=== PATIENT | female | born 1955 | race Caucasian/White ===

== ENCOUNTER 2017-04-07 16:45 | Observation (INO) | payer OTHER ==
[~2017-04-07] VITALS: Ht 170.2 cm; Wt 81.6 kg
[~2017-04-07 16:45] MED LIST: AMOXIL500 MG PO; ATORVASTATIN CA10 MG PO; BACTRIM DS 8001 TAB PO; IBUPROFEN600 M1 PO; KEFLEX500 MG PO; LEVETIRACETAM750 MG PO; PERCOCET 325 MG1 TA2 PO; PREDNISONE20 M1 PO; ULTRAM50 M1 PO; VIBRAMYCIN100 MG PO
--- NOTE | 2017-04-07 16:50 | NUR ---
PT STATES SHE IS FEELING SOB AND HAVING DIFFICULTY THINKING SINCE THIS AM WHEN SHE GOT TO WORK. PT DENIES CHEST PAIN OR WEAKNESS IN LIMBS. PT 02 SAT 97% IN TRIAGE
--- NOTE | 2017-04-07 19:08 | ED DYSPNEA/ASTHMA COMPLAINT ---
History of Present Illness General Chief Complaint: Dyspnea (COPD, CHF, Other) Stated Complaint: SOB, X 6 HRS Vital Signs & Intake/Output Vital Signs & Intake/Output Vital Signs Date Time Temp Pulse Resp B/P B/P Pulse O2 O2 Flow FiO2 Mean Ox Delivery Rate 04/07 1651 96.9 77 18 144/76 97 Room Air Allergies Coded Allergies: carbamazepine (RASH 11/20/16) Uncoded Allergies: CHIPOTLE SEASONING (Intermediate, HIVES 02/07/15) Reconcile Medications Amoxicillin (Amoxil) 500 MG CAP 1 CAP PO TID DENTAL ABSCESS Atorvastatin Calcium (Lipitor) 10 MG TABLET 1 TAB PO AT BEDTIME CHOLESTEROL ( Reported) Cephalexin (Keflex) 500 MG CAPSULE 1 TAB PO 4 TIMES/DAY CELLULITIS Cephalexin (Keflex) 500 MG CAPSULE 1 TAB PO TID CELLULITIS Doxycycline Hyclate (Vibramycin) 100 MG CAPSULE 1 CAP PO BID PNEUMONIA Ibuprofen 600 MG TABLET 1 TAB PO Q6PRN PRN pain with food Levetiracetam 750 MG TABLET 1 TAB PO BID SEIZURES (Reported) OXYCODONE HCL/ACETAMINOPHEN (Percocet 5-325 MG Tablet) 325 MG/5 MG TAB 1-2 TAB PO Q4-6 PRN PRN PAIN OXYCODONE HCL/ACETAMINOPHEN (Percocet 5-325 MG Tablet) 325 MG/5 MG TAB 1-2 TAB PO Q4-6 PRN PRN PAIN EIGHT TABS... [id number] Prednisone 20 MG TABLET 1 TAB PO DAILY COPD Sulfamethoxazole/Trimethopri (Bactrim Ds 800 MG-160 MG) 1 TAB TAB 1 TAB PO BID CELLUITIS Tramadol HCl (Ultram) 50 MG TABLET 1-2 TAB PO Q6PRN PRN severe pain Triage Note: PT STATES SHE IS FEELING SOB AND HAVING DIFFICULTY THINKING SINCE THIS AM WHEN SHE GOT TO WORK. PT DENIES CHEST PAIN OR WEAKNESS IN LIMBS. Triage Nurses Notes Reviewed? 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 EENTM: Reports: no symptoms. Respiratory: Reports: no symptoms. Cardiovascular: Reports: no symptoms. GI: Reports: no symptoms. Genitourinary: Reports: no symptoms. Musculoskeletal: Reports: no symptoms. Skin: Reports: no symptoms. Neurological/Psychological: Reports: no symptoms. Hematologic/Endocrine: Reports: no symptoms. Immunologic/Allergic: Reports: no symptoms. All Other Systems: Reviewed and Negative Progress Plan of Care: Orders Procedure Date/time Status CT HEAD WO IV CONTRAST 04/07 1929 Active XRY-PORTABLE CHEST XRAY 04/07 1908 Active TROPONIN LEVEL 04/07 1908 Active D-DIMER 04/07 1908 Active COMPREHENSIVE METABOLIC PANEL 04/07 1908 Active CBC WITHOUT DIFFERENTIAL 04/07 1908 Active EKG 04/07 1652 Active Departure Departure Condition: Stable Referrals: MARKY MARTE MD (PCP/Family) Departure Forms: Customer Survey General Discharge Information
--- NOTE | 2017-04-07 19:26 | NUR ---
DR PAZ AT BEDSIDE FOR EVAL
--- NOTE | 2017-04-07 19:31 | ED GENERAL ADULT ---
History of Present Illness General Chief Complaint: Dyspnea (COPD, CHF, Other) Stated Complaint: SOB, X 6 HRS Source: patient, family Exam Limitations: no limitations Vital Signs & Intake/Output Vital Signs & Intake/Output Vital Signs Date Time Temp Pulse Resp B/P B/P Pulse O2 O2 Flow FiO2 Mean Ox Delivery Rate 04/078 97.3 91 18 147/74 96 Room Air 04/07 2228 Room Air 04/07 1957 96 04/07 1651 96.9 77 18 144/76 97 Room Air Allergies Coded Allergies: carbamazepine (RASH 11/20/16) Uncoded Allergies: CHIPOTLE SEASONING (Intermediate, HIVES 02/07/15) Reconcile Medications Amoxicillin (Amoxil) 500 MG CAP 1 CAP PO TID DENTAL ABSCESS Atorvastatin Calcium (Lipitor) 10 MG TABLET 1 TAB PO AT BEDTIME CHOLESTEROL ( Reported) Cephalexin (Keflex) 500 MG CAPSULE 1 TAB PO 4 TIMES/DAY CELLULITIS Cephalexin (Keflex) 500 MG CAPSULE 1 TAB PO TID CELLULITIS Cyanocobalamin (Vitamin B-12) (B-12) 1,000 MCG TABLET 1 TAB PO DAILY SUPPLEMENT (Reported) Doxycycline Hyclate (Vibramycin) 100 MG CAPSULE 1 CAP PO BID PNEUMONIA Ibuprofen 600 MG TABLET 1 TAB PO Q6PRN PRN pain with food Levetiracetam 750 MG TABLET 1 TAB PO BID SEIZURES (Reported) OXYCODONE HCL/ACETAMINOPHEN (Percocet 5-325 MG Tablet) 325 MG/5 MG TAB 1-2 TAB PO Q4-6 PRN PRN PAIN OXYCODONE HCL/ACETAMINOPHEN (Percocet 5-325 MG Tablet) 325 MG/5 MG TAB 1-2 TAB PO Q4-6 PRN PRN PAIN EIGHT TABS... [id number] Prednisone 20 MG TABLET 1 TAB PO DAILY COPD Sulfamethoxazole/Trimethopri (Bactrim Ds 800 MG-160 MG) 1 TAB TAB 1 TAB PO BID CELLUITIS Tramadol HCl (Ultram) 50 MG TABLET 1-2 TAB PO Q6PRN PRN severe pain Triage Note: PT STATES SHE IS FEELING SOB AND HAVING DIFFICULTY THINKING SINCE THIS AM WHEN SHE GOT TO WORK. PT DENIES CHEST PAIN OR WEAKNESS IN LIMBS. Triage Nurses Notes Reviewed? yes Onset: Gradual Duration: hour(s):, better Timing: single episode today Injury Environment: work Severity: moderate Modifying Factors: Improves With: rest. Associated Symptoms: difficulty with word finding, "not thinking right" HPI: 62 yo woman h/o seizure disorder, well controlled on Keppra, presents with several hours of "difficulty thinking... difficulty concntrating doing time sheets... I had trouble finding the right words to use." Symptoms from 10am to 1:30pm today. She had missed a keppra dose. She took her keppra upon returning from work, "but I've missed my doses before and this never happened." She notes that she had no slurred speech or focal arm weakness or facial droop. She had no chest pain dizziness diaphoresis. She does note that she has a dry cough and occasional mild wheeze for the past 1-2 days without fever. She is otherwise well. Past History Travel History Traveled to [place] past 21 day No Medical History Any Pertinent Medical History? 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 No Review of Systems Review of Systems Constitutional: Reports: no symptoms. EENTM: Reports: no symptoms. Respiratory: Reports: no symptoms. Cardiovascular: Reports: no symptoms. GI: Reports: no symptoms. Genitourinary: Reports: no symptoms. Musculoskeletal: Reports: no symptoms. Skin: Reports: no symptoms. Neurological/Psychological: Reports: no symptoms. Hematologic/Endocrine: Reports: no symptoms. Immunologic/Allergic: Reports: no symptoms. All Other Systems: Reviewed and Negative Physical Exam Physical Exam General Appearance: well developed/nourished, no apparent distress Head: atraumatic, normal appearance Eyes: Bilateral: normal appearance, PERRL, EOMI. Ears, Nose, Throat: normal pharynx, normal ENT inspection Neck: normal inspection, supple, full range of motion Respiratory: normal breath sounds, chest non-tender, no respiratory distress, quiet respiration, lungs clear Cardiovascular: regular rate/rhythm Gastrointestinal: normal bowel sounds, soft, non-tender, no organomegaly Back: normal inspection, normal range of motion Extremities: normal inspection, normal capillary refill, normal range of motion, no edema Neurologic/Psych: no motor/sensory deficits, awake, alert, oriented x 3 Reflexes: 1+: bicep (R), bicep (L), knee (R), knee (L). Skin: intact, normal color, warm/dry Core Measures ACS in differential dx? No ASA ordered for poss ACS? No-ACS ruled out CVA/TIA Diagnosis: Yes NIH Stroke Scale: Total 0 Comment: discussed with dr. vigil... no need for tpa... normal exam. Severe Sepsis Present: No Septic Shock Present: No Progress Differential Diagnoses I considered the following diagnoses in my evaluation of the patient: tia vs sz vs mass vs other. Plan of Care: Orders Procedure Date/time Status Nothing by Mouth 04/08 B Active Intake & Output 04/07 2158 Active Patient Data 04/07 2129 Active Saline Lock 04/07 2119 Active Misc Message 04/07 2119 Active ED Holding Orders 04/07 2119 Active Vital Signs 04/07 2119 Active Code Status 04/[address] in observation 04/07 2118 Active TROPONIN LEVEL 04/07 1908 Complete D-DIMER 04/07 1908 Complete COMPREHENSIVE METABOLIC PANEL 04/07 1908 Complete CBC WITHOUT DIFFERENTIAL 04/07 1908 Complete EKG 04/07 165 Active Laboratory Tests 04/07/17 1940: Anion Gap 10, Estimated GFR > 60, BUN/Creatinine Ratio 21.4, Glucose 96, Calcium 10.0, Total Bilirubin 0.6, AST 21, ALT 24, Alkaline Phosphatase 103, Troponin I < 0.01, Total Protein 7.3, Albumin 4.2, Globulin 3.1, Albumin/Globulin Ratio 1.4 , D-Dimer < 200, CBC w Diff NO MAN DIFF REQ, RBC 4.12 L, MCV 93.0, MCH 31.0, RDW 13.8, MPV 9.1, Gran % 56.9, Lymphocytes % 32.9, Monocytes % 9.0, Eosinophils % 0.8, Basophils % 0.4, Absolute Granulocytes 3.8, Absolute Lymphocytes 2.2, Absolute Monocytes 0.6, Absolute Eosinophils 0.1, Absolute Basophils 0, PUBS MCHC 33.3 Diagnostic Imaging: Viewed by Me: CT Scan. Discussed w/RAD: CT Scan. Radiology Impression: head ct... neg... full report below CXR Impression: no acute abnormality, no infiltrates, normal size heart, normal mediastinum Initial ED EKG: normal axis, normal intervals, normal p-waves, normal QRS complex, normal sinus rhythm Comments: PATIENT: AMBER MULLIGAN PRESENT AGE: 62 PATIENT ACCOUNT NO: [id number] : 55 LOCATION: [facility] ORDERING PHYSICIAN: HUBERT PAZ MD SERVICE DATE: 04/07/17 EXAM TYPE: CAT - CT HEAD WO IV CONTRAST EXAMINATION: CT HEAD WITHOUT CONTRAST CLINICAL INFORMATION: Mental status change COMPARISON: 11/20/2016 TECHNIQUE: Contiguous axial imaging was performed from the skull base to vertex without intravenous contrast. DLP: 541 mGy-cm. FINDINGS: There is no evidence of acute intracranial hemorrhage or territorial infarction. No abnormal mass effect or midline shift is seen. Stinson to white matter differentiation is well preserved. No extra-axial fluid collections are identified. No hydrocephalus. No significant volume loss. There is no abnormal attenuation within the brain parenchyma. The osseous structures and soft tissues are normal. The mastoid air cells and visualized portions of the paranasal sinuses are well aerated. IMPRESSION: No acute intracranial pathology. DICTATED BY: YESSICA STRONG MD DATE/TIME DICTATED:04/07/172005 GLOVE FORMER:RASHID DATE/TIME TRANSCRIBED:04/07/172005 CONFIDENTIAL, DO NOT COPY WITHOUT APPROPRIATE AUTHORIZATION. <Electronically signed in Other Vendor System> SIGNED BY: YESSICA STRONG MD 04/07 PATIENT: AMBER MULLIGAN PRESENT AGE: 62 PATIENT ACCOUNT NO: [id number] : 55 LOCATION: [facility] ORDERING PHYSICIAN: HUBERT PAZ MD SERVICE DATE: 04/07/17 EXAM TYPE: RAD - XRY-PORTABLE CHEST XRAY EXAMINATION: XR PORTABLE CHEST CLINICAL INFORMATION: Shortness of breath COMPARISON: 11/14/2016 TECHNIQUE: Portable frontal view of the chest was obtained. FINDINGS: No focal consolidation, pleural effusion or pneumothorax. Heart size is normal. No acute osseous abnormality. IMPRESSION: No acute pulmonary process. DICTATED BY: ZAIRA MARCH MD DATE/TIME DICTATED:04/07/171930 GLOVE FORMER:RASHID DATE/TIME TRANSCRIBED:04/07/171930 CONFIDENTIAL, DO NOT COPY WITHOUT APPROPRIATE AUTHORIZATION. <Electronically signed in Other Vendor System> SIGNED BY: ZAIRA MARCH MD 04/07/171935 Departure Departure Disposition: HOME OR SELF CARE Condition: Stable Clinical Impression Primary Impression: TIA (transient ischemic attack) Referrals: MARKY MARTE MD (PCP/Family) Departure Forms: Customer Survey General Discharge Information Comments 04/07/17, 20:45... discussed with dr. vigil... pt merits u/s and further workup. Observation Note Spoke With: WIL LALA,REIS Physician Advisor Notified: AIDE ALLAN DO Place Patient In: Non-ED OBS Care Area Rationale for Observation: My rational for observation is as follows . discussed with neuro... pt has sx consistent with tia vs partial seizure... merits observation, neuro consult, carotid u/s, and following symptoms. Critical Care Note Critical Care Note Critical Care Time: non-applicable
--- NOTE | 2017-04-07 19:36 | RADIOLOGY REPORT ---
EXAMINATION: XR PORTABLE CHEST CLINICAL INFORMATION: Shortness of breath COMPARISON: 11/14/2016 TECHNIQUE: Portable frontal view of the chest was obtained. FINDINGS: No focal consolidation, pleural effusion or pneumothorax. Heart size is normal. No acute osseous abnormality. IMPRESSION: No acute pulmonary process.
--- NOTE | 2017-04-07 19:44 | NUR ---
PT TO CT VIA STRETCHER. RESPIRATORY CALLED FOR TX
--- NOTE | 2017-04-07 19:47 | NUR ---
BLOOD DRAWN AND SENT TO LAB. SST,ARELLANO,BLUE,LAV.
[2017-04-07 19:55] LABS: ABSOLUTE BASOPHIL COUNT 0 /CUMM (0.0-0.2); ABSOLUTE EOSINOPHIL COUNT 0.1 /CUMM (0.0-0.7); ABSOLUTE GRANULOCYTE CT 3.8 /CUMM (1.4-6.5); ABSOLUTE LYMPH COUNT 2.2 /CUMM (1.2-3.4); ABSOLUTE MONOCYTE COUNT 0.6 /CUMM (0.10-0.60); BASOPHIL % 0.4 % (0.0-2.0); EOSINOPHIL % 0.8 % (0-5); GRANULOCYTE % 56.9 % (42.2-75.2); HEMATOCRIT 38.3 % (37-47); MEAN CORPUSCULAR HGB CONC 33.3 G/DL (33.0-37.0); MEAN PLATELET VOLUME 9.1 FL (7.4-10.4); PLATELET COUNT 298 /CUMM (130-400); RBC DISTRIBUTION WIDTH 13.8 % (11.5-14.5); RED BLOOD CELL CT 4.12 /CUMM (4.20-5.40); WHITE BLOOD CELL COUNT 6.6 /CUMM (4.8-10.8)
--- NOTE | 2017-04-07 20:10 | CT SCAN REPORT ---
EXAMINATION: CT HEAD WITHOUT CONTRAST CLINICAL INFORMATION: Mental status change COMPARISON: 11/20/2016 TECHNIQUE: Contiguous axial imaging was performed from the skull base to vertex without intravenous contrast. DLP: 541 mGy-cm. FINDINGS: There is no evidence of acute intracranial hemorrhage or territorial infarction. No abnormal mass effect or midline shift is seen. Stinson to white matter differentiation is well preserved. No extra-axial fluid collections are identified. No hydrocephalus. No significant volume loss. There is no abnormal attenuation within the brain parenchyma. The osseous structures and soft tissues are normal. The mastoid air cells and visualized portions of the paranasal sinuses are well aerated. IMPRESSION: No acute intracranial pathology.
--- NOTE | 2017-04-07 22:11 | NUR ---
PT GOING TO ROOM 174-1
[2017-04-07] MEDS ORDERED: B-121000 MC3 PO (22:32)
--- NOTE | 2017-04-07 22:54 | NUR ---
20 G IV ESTABLISHED IN LAC
--- NOTE | 2017-04-07 22:55 | NUR ---
ATTEMPTED TO CALL REPORT. NURSE OFF FLOOR AND WILL CALL BACK
--- NOTE | 2017-04-07 23:07 | History & Physical ---
COMFORT DAMICO 04/07/17 6020: General Information and HPI MD Statement: I have seen and personally examined AMBER MULLIGAN and documented this H&P. The patient is a 62 year old F who presented with a patient stated chief complaint of [slowness and inability to think right]. Source of Information: patient Exam Limitations: no limitations History of Present Illness: This is a 62-year-old female, with past medical history of seizure disorder since childhood (initially absence seizure, and then tonic-clonic seizure since 2011), hyperlipidemia, COPD, emphysema, cholelithiasis came in with chief complain of not able to work and comprehend normally since today morning. 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 She says that she was at work and she was not able to work on her time she eats. It took a lot more effort from her side to do her routine work. At times she lost understanding of what was going on. However she never was not alert or lost consciousness or had any abnormal activities. She said that she had to write ischemia and she could not reply the email coherently. She does report endorse however that she conducted a job interview, she had some mild low-grade headache and noise was bothering her. She continued to work from 10 AM until 1: 30 PM however after that she felt like she could not discontinue normally and therefore came in home. She did try a pack of home normally. He does consume alcohol over the weekend, recently she consumes 6 shots of alcohol over the weekend however she says that she does not drink on daily basis and it's only the weekend when the patient together mostly tequila. Ms kinney was diagnosed with since he isn't in the childhood and she was kept on Depakote, however she was seizure free and therefore was taken off the Depakote, however in 2011 the seizure record with being tonic-clonic this time, after which she was started on Keppra. She says that she has been very compliant with her Keppra and has not missed any dosages. She sees neurologist twice a year her primary care Dr. Cisneros, and she says that she has been mostly compliant. She denied any seizure-like activity, any loss of consciousness, any palpitations, she did however endorse that she had not had her breakfast in the morning and she did not drink any water and she also did not eat properly the previous dAY night.she did sleep well the previous night. Allergies/Medications Allergies: Coded Allergies: carbamazepine (RASH 11/20/16) Uncoded Allergies: CHIPOTLE SEASONING (Intermediate, HIVES 02/07/15) Home Med list Atorvastatin Calcium (Lipitor) 10 MG TABLET 1 TAB PO AT BEDTIME CHOLESTEROL ( Reported) Cyanocobalamin (Vitamin B-12) (B-12) 1,000 MCG TABLET 1 TAB PO DAILY SUPPLEMENT (Reported) Ibuprofen 600 MG TABLET 600 MG PO Q8P PRN Knee pain Levetiracetam 750 MG TABLET 1 TAB PO BID SEIZURES (Reported) Compliance With Home Meds: FAIR Past History Travel History Traveled to [place] past 21 day No Medical History Blood Transfusion Hx: No Neurological: seizure, EPILEPSY EENT: NONE Cardiovascular: hyperlipidemia Respiratory: COPD, emphysema, pneumonia Gastrointestinal: NONE Hepatic: cholelithiasis Renal: NONE Musculoskeletal: NONE Psychiatric: NONE Endocrine: NONE Blood Disorders: NONE Cancer(s): NONE ON AIR PERSONALITY/Reproductive: NONE Surgical History Surgical History: non-contributory Past Family/Social History Psychosocial History Where do you live? Home Who Do You Live With? significant other Services at Home: None Smoking Status: Former Smoker ETOH Use: occasional use Illicit Drug Use: marijuana Functional Ability ADLs Independent: dressing, eating, toileting, bathing. Ambulation: independent IADLs Independent: shopping, housework, finances, food prep, telephone, transportation , medication admin. Review of Systems Review of Systems Constitutional: Denies: chills, diaphoresis, fever, malaise, weakness, unexplained weight loss. EENTM: Denies: blurred vision, double vision, visual changes, eye pain, eye drainage. Cardiovascular: Denies: chest pain, edema, orthopena, palpitations, peripheral edema. Respiratory: Denies: cough, hemoptysis, orthopnea, short of breath, sputum production. GI: Denies: abdominal pain, bloating, constipation, diarrhea. Genitourinary: Denies: discharge, dysuria, frequency, hematuria. Musculoskeletal: Denies: back pain, gout, joint pain, joint swelling. Skin: Denies: cysts, change in skin color, change in hair/nails, dryness. Neurological/Psychological: Reports: confusion, headache. Denies: anxiety, ataxia, cognitive dysfunction, depressed, dementia, emotional problems, numbness, paresthesia. Hematologic/Endocrine: Reports: no symptoms. Immunologic/Allergic: Reports: no symptoms. All Other Systems: Reviewed and Negative Exam & Diagnostic Data Last 24 Hrs of Vital Signs/I&O Vital Signs Date Time Temp Pulse Resp B/P B/P Pulse O2 O2 Flow FiO2 Mean Ox Delivery Rate 04/08 0000 Room Air 04/07 2258 97.3 91 18 147/74 96 Room Air 04/07 2228 Room Air 04/07 1957 96 04/07 1651 96.9 77 18 144/76 97 Room Air Intake & Output 04/08 0800 04/08 0000 04/07 1600 Intake Total Output Total Balance Patient 81.647 kg Weight Weight Reported by Patient Measurement Method Physical Exam General Appearance Alert, Oriented X3, Cooperative, No Acute Distress Skin No Rashes, No Breakdown HEENT Atraumatic, PERRLA, EOMI Neck Supple, No JVD Cardiovascular Regular Rate, Normal S1, Normal S2 Lungs Clear to Auscultation, Normal Air Movement Abdomen Normal Bowel Sounds, Soft, No Tenderness Neurological Normal Speech, Strength at 5/5 X4 Ext, Normal Tone, Sensation Intact, Cranial Nerves 3-12 NL Extremities No Clubbing, No Cyanosis, No Edema, Normal Pulses Vascular Normal Pulses Last 24 Hrs of Labs/Aaron: Laboratory Tests 04/08/17 0125: Urine Opiates Screen < 100.00, Methadone Screen < 40, Barbiturate Screen < 60, Ur Phencyclidine Scrn < 6.00, Amphetamines Screen < 100, U Benzodiazepines Scrn < 85, Urine Cocaine Screen < 50, Urine Cannabis Screen 75.40 H, Urine Color YEL , Urine Clarity CLEAR, Urine pH 6.0, Ur Specific [place] 1.025, Urine Protein NEG, Urine Ketones NEG, Urine Nitrite NEG, Urine Bilirubin NEG, Urine Urobilinogen 0.2, Ur Leukocyte Esterase NEG, Ur Microscopic EXAM NOT REQUIRED, Urine Hemoglobin NEG, Urine Glucose NEG 04/07/17 1940: Anion Gap 10, Estimated GFR > 60, BUN/Creatinine Ratio 21.4, Glucose 96, Calcium 10.0, Total Bilirubin 0.6, AST 21, ALT 24, Alkaline Phosphatase 103, Troponin I < 0.01, Total Protein 7.3, Albumin 4.2, Globulin 3.1, Albumin/Globulin Ratio 1.4 , D-Dimer < 200, CBC w Diff NO MAN DIFF REQ, RBC 4.12 L, MCV 93.0, MCH 31.0, RDW 13.8, MPV 9.1, Gran % 56.9, Lymphocytes % 32.9, Monocytes % 9.0, Eosinophils % 0.8, Basophils % 0.4, Absolute Granulocytes 3.8, Absolute Lymphocytes 2.2, Absolute Monocytes 0.6, Absolute Eosinophils 0.1, Absolute Basophils 0, PUBS MCHC 33.3 Diagnostic Data EKG Results normal sinus rhythm, rate of 75, QTC of 442, no acute ST-T wave changes, normal axis. CXR Results FINDINGS: No focal consolidation, pleural effusion or pneumothorax. Heart size is normal. No acute osseous abnormality. IMPRESSION: No acute pulmonary process. Other Results SERVICE DATE: 04/07/17 EXAM TYPE: CAT - CT HEAD WO IV CONTRAST EXAMINATION: CT HEAD WITHOUT CONTRAST CLINICAL INFORMATION: Mental status change COMPARISON: 11/20/2016 TECHNIQUE: Contiguous axial imaging was performed from the skull base to vertex without intravenous contrast. DLP: 541 mGy-cm. FINDINGS: There is no evidence of acute intracranial hemorrhage or territorial infarction. No abnormal mass effect or midline shift is seen. [place]inson to white matter differentiation is well preserved. No extra-axial fluid collections are identified. No hydrocephalus. No significant volume loss. There is no abnormal attenuation within the brain parenchyma. The osseous structures and soft tissues are normal. The mastoid air cells and visualized portions of the paranasal sinuses are well aerated. IMPRESSION: No acute intracranial pathology. Assessment/Plan Assessment: In summary this is a 62-year-old female with past medical history of absence seizures since childhood, initially on Depakote, in remission, recurrence of the seizure now tonic-clonic since 2011 on Keppra, hyperlipidemia, COPD, emphysema, cholelithiasis came in with chief complain of difficulty comprehending normally and reactive slowness off work and not being able to understand and have complete coherence at work today morning prior to presentation. She denied any seizure-like activities, any loss of consciousness, palpitations, weakness, chest pain, any recent illness. Vitals on presentation temperature of 97.3/blood pressure of 147/74, respiration of 19, pulse of 91, she was 96% saturating on room air. Effects no white count, A/H stable at 12.8/38.3, electrolytes within normal limits, renal function test normal, LFTs normal, calcium 10.1, troponin less than 0.01. Head CT was negative for any acute intracranial findings. Chest x-ray was negative for any cardiopulmonary findings. We will observe the patient for 24 hours on telemetry Problem list along with assessment and plan. Problem #1 Incoherence, confusion, slowness and inability to think right. She has history of temporal lobe epilepsy my has a history of seizure disorder, there was no bowel or bladder incontinence, any seizure-like activity, no tongue biting, chest confusion, it could be secondary to seizure versus hypoglycemia as the patient had not eaten in the morning, other possibility could be TIA, however patient did not have any neurological focal weakness or sensory loss or any other neurological finding. Other possibility would be withdrawal from Martin basis the patient has been taking a lot of cannabis however she has been taking this for a long time.Other possibilty could be arrythmias, less likely. Continue to monitor vitals every shift. Continue to monitor intakes and outputs. Continue neuro checks. Continue NIH stroke scale. Ct head -ve Neuro consult in a.m. to rule out seizure/TIA. EEG in a.m. Continue Keppra IV twice a day for now. Can check Keppra level however this is a send out lab. she received one time off to 25 mg aspirin at the emergency department. Problem #2 history of hyperlipidemia. Patient was prescribed statin however she was not taking it due to insurance issues. Will continue atorvastatin 10 mg at bedtime. Consider changing to high-dose statin. Fc DVt px lovenox Regular diet PP As Ranked By This Provider Problem List: 1. Confusion 2. Confusion state Core Measures/Miscellaneous Acute Coronary Syndrome ACS Diagnosis: No Cerebrovascular Accident CVA/TIA Diagnosis: No Congestive Heart Failure CHF Diagnosis: No Venous Thromboembolism VTE Risk Factors: Age > 40 [address] [facility] VTE prophylaxis d/t: No contraindications No VTE Pharm Prophylaxis d/t: No contraindications VTE Diagnosis: No VTE Type: NONE VTE Confirmed by (Test): NONE Severe Sepsis Severe Sepsis Present: No Septic Shock Septic Shock Present: No Miscellaneous Documentation Attending Case Discussed With: MARKY CISNEROS MD Primary Care Physician: MARKY CISNEROS MD Patient sees these Specialists Dr pinto ( nuerologist) Level of Patient Care: Telemetry MARKY CISNEROS MD 04/08/17 0926: Attending MD Review Statement Attending Statement Attending MD Statement: examined this patient, discuss w/resident/PA/RN TRAINING, discussed with family, reviewed EMR data (avail) Patient sees these Specialists Dr pinto ( nuerologist) Level of Patient Care: Telemetry MARKY CISNEROS MD 04/08/17 0926: Attending MD Review Statement Attending Statement Attending Statement: examined this patient, discuss w/resident/PA/RN TRAINING, discussed with family, reviewed EMR data (avail)
--- NOTE | 2017-04-07 23:10 | NUR ---
REPORT CALLED TO ELIUD GARCES
--- NOTE | 2017-04-07 23:57 | NUR ---
ASA 325 MG PO GIVEN
--- NOTE | 2017-04-07 23:58 | NUR ---
AMBER MULLIGAN Nurse Note by: DUKE DOBBS I agree with the LAB AIDE findings/evaluation of this patient's condition. Entered by: DUKE DOBBS Date: 04/07/17 Time: 0148
--- NOTE | 2017-04-08 07:45 | PN- Housestaff ---
Subjective Follow-up For: Possible seizure Tele-Events Since Last Visit: NSR Subjective: Patient seen and examined at bedside. Resting comfortably in bed. Alert, awake and oriented x 3. Reports no further episodes of altered mental status since the admission. Feeling well at baseline. Just endorsing right knee pain for which she takes ibuprofen at home. Denies any dyspnea, chest pain, palpitations, lightheadedness, dizziness, abdominal pain, n/v/c/d. Review of Systems Constitutional: Reports: see HPI. Objective Last 24 Hrs of Vital Signs/I&O Vital Signs Date Time Temp Pulse Resp B/P B/P Pulse O2 O2 Flow FiO2 Mean Ox Delivery Rate 04/08 0000 Room Air 04/07 2258 97.3 91 18 147/74 96 Room Air 04/07 2228 Room Air 04/07 195 96 04/07 1651 96.9 77 18 144/76 97 Room Air Intake & Output 04/08 1600 04/08 0800 04/08 0000 Intake Total 250 Output Total Balance 250 Intake, IV 10 Intake, Oral 240 Patient 81.647 kg Weight Weight Reported by Patient Measurement Method Physical Exam General Appearance: Alert, Oriented X3, Cooperative, No Acute Distress Current Medications: Current Medications Sig/Miller Start time Last Medication Dose Route Stop Time Status Admin Albuterol Sulfate 3 ML ONCE ONE 04/07 1945 DC 04/07 INH 04/07 Aspirin 0 .STK-MED ONE 04/078 DC PO Aspirin 325 MG ONCE ONE 04/07 2345 DC 04/07 PO 04/07 Atorvastatin Calcium 10 MG AT BEDTIME 04/08 2200 AC PO Cyanocobalamin 1,000 MCG DAILY 04/08 1000 AC PO Ibuprofen 600 MG Q6PRN PRN 04/08 0815 AC PO Ipratropium [place] 2.5 ML ONCE ONE 04/07 1945 DC 04/07 INH 04/07 Levetiracetam 750 MG BID 04/08 0100 AC 04/08 PO 0137 Last 24 Hrs of Lab/Aaron Results Last 24 Hrs of Labs/Mics: Laboratory Tests 04/08/17 0125: Urine Opiates Screen < 100.00, Methadone Screen < 40, Barbiturate Screen < 60, Ur Phencyclidine Scrn < 6.00, Amphetamines Screen < 100, U Benzodiazepines Scrn < 85, Urine Cocaine Screen < 50, Urine Cannabis Screen 75.40 H, Urine Color YEL , Urine Clarity CLEAR, Urine pH 6.0, Ur Specific [place] 1.025, Urine Protein NEG, Urine Ketones NEG, Urine Nitrite NEG, Urine Bilirubin NEG, Urine Urobilinogen 0.2, Ur Leukocyte Esterase NEG, Ur Microscopic EXAM NOT REQUIRED, Urine Hemoglobin NEG, Urine Glucose NEG 04/07/17 1940: Anion Gap 10, Estimated GFR > 60, BUN/Creatinine Ratio 21.4, Glucose 96, Calcium 10.0, Total Bilirubin 0.6, AST 21, ALT 24, Alkaline Phosphatase 103, Troponin I < 0.01, Total Protein 7.3, Albumin 4.2, Globulin 3.1, Albumin/Globulin Ratio 1.4 , Prolactin Pending, D-Dimer < 200, CBC w Diff NO MAN DIFF REQ, RBC 4.12 L, MCV 93.0, MCH 31.0, RDW 13.8, MPV 9.1, Gran % 56.9, Lymphocytes % 32.9, Monocytes % 9.0, Eosinophils % 0.8, Basophils % 0.4, Absolute Granulocytes 3.8, Absolute Lymphocytes 2.2, Absolute Monocytes 0.6, Absolute Eosinophils 0.1, Absolute Basophils 0, PUBS MCHC 33.3 Assessment/Plan Assessment: 62-year-old female with past medical history of absence seizures since childhood , initially on Depakote, in remission, recurrence of the seizure now tonic- clonic since 2011 on Keppra, hyperlipidemia, COPD, emphysema, cholelithiasis came in with chief complain of difficulty with altered mental status possibly 2/ 2 recurrent seizure activity. # Altered mental status Rule out seizure vs. TIA. CT head negative. * Continue tele monitoring for arrythymias * Vitals per protocol * Continue neuro checks and NIH stroke scale. * Awaiting neuro input * EEG amd MRI of the head in the meantime * Continue Keppra IV 670mg BID for now. * Can check Keppra level (a send out lab) # HLD Patient was prescribed statin however she was not taking it due to insurance issues. * Continue Lipitor 10mg PO qHS * Consider changing to high-dose statin. - NPO - Mild pain pathway - DVTppx with Lovenox and ALPS - Full code. Problem List: 1. Confusion Pain Ratin Pain Location: 0 Pain Goal: Remain pain free Pain Plan: Mild path Tomorrow's Labs & Rationales: None
[2017-04-08 08:13] VITALS: BP 118/76
--- NOTE | 2017-04-08 09:23 | Admission Certification ---
Admission Certification Certification Statement - As attending physician, I certify that at the time of - admission, based on clinical presentation, severity of - symptoms, need for further diagnostic testing and - therapeutic interventions, and risk of adverse outcomes - without in-hospital treatment, in my clinical assessment, - this patient requires an acute hospital stay for a minimum - of two nights or longer. I have also considered psychsocial - factors such as support system, advanced age, financial - issues, cognitive issues, and failed out-patient treatments, - past re-admission history, safety of patient, and lack of - compliance as applicable. Specific rationale supporting this admission is: confusion and AMS
--- NOTE | 2017-04-08 09:27 | PN- Att Addend ---
Attending Addendum Attending Brief Note Patient has no symptoms this morning and she is neurologically intact General Appearance: Alert, No Acute Distress Skin: Grossly normal HEENT: PEERLA Neck: Supple, No JVD Cardiovascular: Regular Rate, Normal S1, Normal S2, No Murmurs Lungs: Clear to Auscultation, Normal Air Movement Abdomen: Normal Bowel Sounds, Soft, No Tenderness Neurological: Normal Speech, Strength at 5/5 X4 Ext, Cranial Nerves 3-12 NL, Reflexes 2+ Extremities: No Clubbing, No Cyanosis, No Edema Vascular: Normal Pulses Assessment 62-year-old female with history of seizure disorder on Keppra, hyperlipidemia, COPD, emphysema presenting with episodes of light lightheadedness and inability to concentrate that lasted for about 4 hours. Patient had not eaten that morning and she has history of hypoglycemia secondary to skipping meals in the past. She has no neurological deficits and her CAT scan head are negative. Suspicion for TIA and seizure disorder is very low. This might be an event of hypoglycemia. She will get a neurological evaluation and have an MRI. Plan MRI brain Neurological evaluation Continue to monitor in telemetry Continue current medications DVT prophylaxis Current Medications Sig/Miller Start time Last Medication Dose Route Stop Time Status Admin Albuterol Sulfate 3 ML ONCE ONE 04/07 1945 DC 04/07 INH 04/07 Aspirin 0 .STK-MED ONE 04/078 DC PO Aspirin 325 MG ONCE ONE 04/07 234 DC 04/07 PO 04/07 2346 235 Atorvastatin Calcium 10 MG AT BEDTIME 04/08 2200 AC PO Cyanocobalamin 1,000 MCG DAILY 04/08 1000 AC 04/08 PO 0910 Ibuprofen 600 MG Q6PRN PRN 04/08 0815 04/08 PO 0910 Ipratropium [place] 2.5 ML ONCE ONE 04/07 1945 DC 04/07 INH 04/07 Levetiracetam 750 MG BID 04/08 0100 AC 04/08 PO 0910 Laboratory Tests 04/08 Chemistry Sodium (137 - 145 mmol/L) 140 Potassium (3.5 - 5.1 mmol/L) 4.1 Chloride (98 - 107 mmol/L) 102 Carbon Dioxide (22 - 30 mmol/L) 27 Anion Gap (5 - 16) 10 BUN (7 - 17 mg/dL) 15 Creatinine (0.5 - 1.0 mg/dL) 0.7 Estimated GFR (>60 ml/min) > 60 BUN/Creatinine Ratio (7 - 25 %) 21.4 Glucose (65 - 99 mg/dL) 96 Calcium (8.4 - 10.2 mg/dL) 10.0 Total Bilirubin (0.2 - 1.3 mg/dL) 0.6 AST (14 - 36 U/L) 21 ALT (9 - 52 U/L) 24 Alkaline Phosphatase (<127 U/L) 103 Troponin I (< 0.11 ng/ml) < 0.01 Total Protein (6.3 - 8.2 g/dL) 7.3 Albumin (3.5 - 5.0 g/dL) 4.2 Globulin (1.9 - 4.2 gm/dL) 3.1 Albumin/Globulin Ratio (1.1 - 2.2 %) 1.4 Prolactin (3.0 - 18.6 ng/mL) Pending Coagulation D-Dimer (70 - 232 ng/ml) < 200 Hematology CBC w Diff NO MAN DIFF REQ WBC (4.8 - 10.8 /CUMM) 6.6 RBC (4.20 - 5.40 /CUMM) 4.12 L Hgb (12.0 - 16.0 G/DL) 12.8 Hct (37 - 47 %) 38.3 MCV (81.0 - 99.0 FL) 93.0 MCH (27.0 - 31.0 PG) 31.0 RDW (11.5 - 14.5 %) 13.8 Plt Count (130 - 400 /CUMM) 298 MPV (7.4 - 10.4 FL) 9.1 Gran % (42.2 - 75.2 %) 56.9 Lymphocytes % (20.5 - 51.1 %) 32.9 Monocytes % (1.7 - 9.3 %) 9.0 Eosinophils % (0 - 5 %) 0.8 Basophils % (0.0 - 2.0 %) 0.4 Absolute Granulocytes (1.4 - 6.5 /CUMM) 3.8 Absolute Lymphocytes (1.2 - 3.4 /CUMM) 2.2 Absolute Monocytes (0.10 - 0.60 /CUMM) 0.6 Absolute Eosinophils (0.0 - 0.7 /CUMM) 0.1 Absolute Basophils (0.0 - 0.2 /CUMM) 0 PUBS MCHC (33.0 - 37.0 G/DL) 33.3 Toxicology Urine Opiates Screen (>2000 NG/ML) < 100.00 Methadone Screen (>300 NG/ML) < 40 Barbiturate Screen (>200 NG/ML) < 60 Ur Phencyclidine Scrn (>25 NG/ML) < 6.00 Amphetamines Screen (>1000 NG/ML) < 100 U Benzodiazepines Scrn (>200 NG/ML) < 85 Urine Cocaine Screen (>300 NG/ML) < 50 Urine Cannabis Screen (>50 NG/ML) 75.40 H Urines Urine Color (YEL,AMB,STR) YEL Urine Clarity (CLEAR) CLEAR Urine pH (5.0 - 8.0) 6.0 Ur Specific [place] (1.001 - 1.035) 1.025 Urine Protein (NEG,<30 MG/DL) NEG Urine Ketones (NEG) NEG Urine Nitrite (NEG) NEG Urine Bilirubin (NEG) NEG Urine Urobilinogen (0.1 - 1.0 EU/dl) 0.2 Ur Leukocyte Esterase (NEG) NEG Ur Microscopic EXAM NOT REQUIRED Urine Hemoglobin (NEG) NEG Urine Glucose (N MG/DL) NEG Vital Signs Date Time Temp Pulse Resp B/P B/P Pulse O2 O2 Flow FiO2 Mean Ox Delivery Rate 04/08 813 98.2 109 18 118/76 92 Room Air 04/08 0000 Room Air 04/078 97.3 91 18 147/74 96 Room Air 04/078 Room Air 04/07 1957 96 04/07 1651 96.9 77 18 144/76 97 Room Air
--- NOTE | 2017-04-08 16:20 | ELECTROENCEPHALOGRAM REPORT ---
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 Inpatient Medications: Current Medications Sig/Miller Start time Last Medication Dose Route Stop Time Status Admin Albuterol Sulfate 3 ML ONCE ONE 04/07 1945 DC 04/07 INH 04/07 Aspirin 0 .STK-MED ONE 04/07 235 DC PO Aspirin 325 MG ONCE ONE 04/07 2345 DC 04/07 PO 04/07 Atorvastatin Calcium 10 MG AT BEDTIME 04/08 2200 AC PO Cyanocobalamin 1,000 MCG DAILY 04/08 1000 AC 04/08 PO 0910 Ibuprofen 600 MG Q6PRN PRN 04/08 0815 AC 04/08 PO 0910 Ipratropium [place] 2.5 ML ONCE ONE 04/07 1945 DC 04/07 INH 04/07 Levetiracetam 750 MG BID 04/08 0100 AC 04/08 PO 0910 Patient Medication 1 ED .STK-MED ONE 04/08 1343 DC Teaching ED 04/08 1344 Interpretation: The recording reveals the normal frequency gradient, faster frequencies anteriorly and slower in the posterior regions. During the recording there are numerous reoccurring short runs of 2-3 hertz sharp and wave forms that occur synchronuously within the bilateral frontal regions. At other times more isolated discharges are seen predominantly within the right frontal region but also at times on the left. The posterior dominant rhythm is 12 hertz bilaterally. Impression: Abnormal EEG that reveals ongoing intermittent short-lived runs of bifrontal spike and wave activity and occasional epileptogenic sharps more prominent within the right frontal region that are consistent with the patient's history of PGE.
[2017-04-08 16:40] VITALS: BP 104/70
--- NOTE | 2017-04-08 18:15 | Cons- Neurology ---
General Information and HPI Consulting Request Date of Consult: 04/08/17 Requested By: MARKY MARTE MD Reason for Consult: AMS Source of Information: patient, old records Exam Limitations: no limitations History of Present Illness: This is a 62 year old right handed woman who is well known for me. I had diagnosed her with recurrence of primary generalized epilepsy in 2011 (had it in childhood but than went off meds for years) and at the time placed her on Keppra. Despite ongoing residual epileptogenic activity on EEGs, she did not have a recurrence. She has been seizure free for 5 years. She is seeing Dr. Cavanaugh at the moment due to a problem she had at our office with her insurance. Yesterday she was at work, when she felt not herself and had a "foggy" mentation and a headache for an unclear reason. Her mentation was slower and she struggled reading and responding to an email, but at the same time could conduct a work interview. Throughout this time she could comprehend and respond to what people were saying and did not pass out at any point. This went on four about four hours after which she reports she had some candy and felt better. She is currently back to baseline. She reminds me that this is not like her seizures in the past were the seizure cut her mid-sentence causing transient aphasic episodes. She is adherent to her regimen, does not drink, but has not slept well over the last couple of days. She denies any fever or chills. Allergies/Medications Allergies: Coded Allergies: carbamazepine (RASH 11/20/16) Uncoded Allergies: CHIPOTLE SEASONING (Intermediate, HIVES 02/07/15) Home Med List: Atorvastatin Calcium (Lipitor) 10 MG TABLET 1 TAB PO AT BEDTIME CHOLESTEROL ( Reported) Cephalexin (Keflex) 500 MG CAPSULE 1 TAB PO TID CELLULITIS Cyanocobalamin (Vitamin B-12) (B-12) 1,000 MCG TABLET 1 TAB PO DAILY SUPPLEMENT (Reported) Doxycycline Hyclate (Vibramycin) 100 MG CAPSULE 1 CAP PO BID PNEUMONIA Ibuprofen 600 MG TABLET 1 TAB PO Q6PRN PRN pain with food Levetiracetam 750 MG TABLET 1 TAB PO BID SEIZURES (Reported) OXYCODONE HCL/ACETAMINOPHEN (Percocet 5-325 MG Tablet) 325 MG/5 MG TAB 1-2 TAB PO Q4-6 PRN PRN PAIN OXYCODONE HCL/ACETAMINOPHEN (Percocet 5-325 MG Tablet) 325 MG/5 MG TAB 1-2 TAB PO Q4-6 PRN PRN PAIN EIGHT TABS... [id number] Prednisone 20 MG TABLET 1 TAB PO DAILY COPD Sulfamethoxazole/Trimethopri (Bactrim Ds 800 MG-160 MG) 1 TAB TAB 1 TAB PO BID CELLUITIS Tramadol HCl (Ultram) 50 MG TABLET 1-2 TAB PO Q6PRN PRN severe pain Current Medications: Current Medications Sig/Miller Start time Last Medication Dose Route Stop Time Status Admin Albuterol Sulfate 3 ML ONCE ONE 04/07 1945 DC 04/07 INH 04/07 Aspirin 0 .STK-MED ONE 04/07 235 DC PO Aspirin 325 MG ONCE ONE 04/07 234 DC 04/07 PO 04/07 2346 235 Atorvastatin Calcium 10 MG AT BEDTIME 04/08 2200 AC PO Cyanocobalamin 1,000 MCG DAILY 04/08 1000 AC 04/08 PO 0910 Ibuprofen 600 MG Q6PRN PRN 04/08 0815 AC 04/08 PO 0910 Ipratropium [place] 2.5 ML ONCE ONE 04/07 1945 DC 04/07 INH 04/07 Levetiracetam 750 MG BID 04/08 0100 AC 04/08 PO 0910 Patient Medication 1 ED .STK-MED ONE 04/08 1343 [place] Teaching ED 04/08 1344 Review of Systems Review of Systems: As per HPI. 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 Home Who Do You Live With? significant other Services at Home: None Smoking Status: Former Smoker ETOH Use: occasional use Illicit Drug Use: marijuana Functional Ability ADLs Independent: dressing, eating, toileting, bathing. Ambulation: independent IADLs Independent: shopping, housework, finances, food prep, telephone, transportation , medication admin. Exam & Diagnostic Data Vital Signs and I&O Vital Signs Date Time Temp Pulse Resp B/P B/P Pulse O2 O2 Flow FiO2 Mean Ox Delivery Rate 04/08 1640 98.5 87 18 104/70 95 Room Air 04/08 0813 98.2 109 18 118/76 92 Room Air 04/08 0000 Room Air 04/07 2258 97.3 91 18 147/74 96 Room Air 04/07 2228 Room Air 04/07 1957 96 Intake & Output 04/08 1600 04/08 0800 04/08 0000 Intake Total 500 250 Output Total Balance 500 250 Intake, IV 10 Intake, Oral 500 240 Number 0 Bowel Movements Patient 180 lb Weight Weight Reported by Patient Measurement Method Physical Exam: She is alert and orientedx3, fluent and comprehends everything. S1 and S2 are normal. RRR. EOMI, ASHLEY, no nystagmus, face symmetric, V1-V3 sensation normal, tongue midline , uvula raises in shiva midline, hearing is normal. TPZ and SCM strong. Strength intact throughout the proximal and distal distributions of the UE and LE. Sensory testing is normal. FNF normal. Reflexes symmetric with down going toes. Gait stable. VF intact. Last 48 Hours of Lab Results: Laboratory Tests 04/08 04/07 0125 1940 Chemistry Sodium (137 - 145 mmol/L) 140 Potassium (3.5 - 5.1 mmol/L) 4.1 Chloride (98 - 107 mmol/L) 102 Carbon Dioxide (22 - 30 mmol/L) 27 Anion Gap (5 - 16) 10 BUN (7 - 17 mg/dL) 15 Creatinine (0.5 - 1.0 mg/dL) 0.7 Estimated GFR (>60 ml/min) > 60 BUN/Creatinine Ratio (7 - 25 %) 21.4 Glucose (65 - 99 mg/dL) 96 Calcium (8.4 - 10.2 mg/dL) 10.0 Total Bilirubin (0.2 - 1.3 mg/dL) 0.6 AST (14 - 36 U/L) 21 ALT (9 - 52 U/L) 24 Alkaline Phosphatase (<127 U/L) 103 Troponin I (< 0.11 ng/ml) < 0.01 Total Protein (6.3 - 8.2 g/dL) 7.3 Albumin (3.5 - 5.0 g/dL) 4.2 Globulin (1.9 - 4.2 gm/dL) 3.1 Albumin/Globulin Ratio (1.1 - 2.2 %) 1.4 Prolactin (3.0 - 18.6 ng/mL) 5.5 Coagulation D-Dimer (70 - 232 ng/ml) < 200 Hematology CBC w Diff NO MAN DIFF REQ WBC (4.8 - 10.8 /CUMM) 6.6 RBC (4.20 - 5.40 /CUMM) 4.12 L Hgb (12.0 - 16.0 G/DL) 12.8 Hct (37 - 47 %) 38.3 MCV (81.0 - 99.0 FL) 93.0 MCH (27.0 - 31.0 PG) 31.0 RDW (11.5 - 14.5 %) 13.8 Plt Count (130 - 400 /CUMM) 298 MPV (7.4 - 10.4 FL) 9.1 Gran % (42.2 - 75.2 %) 56.9 Lymphocytes % (20.5 - 51.1 %) 32.9 Monocytes % (1.7 - 9.3 %) 9.0 Eosinophils % (0 - 5 %) 0.8 Basophils % (0.0 - 2.0 %) 0.4 Absolute Granulocytes (1.4 - 6.5 /CUMM) 3.8 Absolute Lymphocytes (1.2 - 3.4 /CUMM) 2.2 Absolute Monocytes (0.10 - 0.60 /CUMM) 0.6 Absolute Eosinophils (0.0 - 0.7 /CUMM) 0.1 Absolute Basophils (0.0 - 0.2 /CUMM) 0 PUBS MCHC (33.0 - 37.0 G/DL) 33.3 Toxicology Urine Opiates Screen (>2000 NG/ML) < 100.00 Methadone Screen (>300 NG/ML) < 40 Barbiturate Screen (>200 NG/ML) < 60 Ur Phencyclidine Scrn (>25 NG/ML) < 6.00 Amphetamines Screen (>1000 NG/ML) < 100 U Benzodiazepines Scrn (>200 NG/ML) < 85 Urine Cocaine Screen (>300 NG/ML) < 50 Urine Cannabis Screen (>50 NG/ML) 75.40 H Urines Urine Color (YEL,AMB,STR) YEL Urine Clarity (CLEAR) CLEAR Urine pH (5.0 - 8.0) 6.0 Ur Specific [place] (1.001 - 1.035) 1.025 Urine Protein (NEG,<30 MG/DL) NEG Urine Ketones (NEG) NEG Urine Nitrite (NEG) NEG Urine Bilirubin (NEG) NEG Urine Urobilinogen (0.1 - 1.0 EU/dl) 0.2 Ur Leukocyte Esterase (NEG) NEG Ur Microscopic EXAM NOT REQUIRED Urine Hemoglobin (NEG) NEG Urine Glucose (N MG/DL) NEG Imaging/Other Studies: EEG = short runs of 3Hz spike and wave bifrontally. Assessment/Plan Assessment: 62 year old woman who has been seizure free x 5 years despite having an abnormal EEG throughout it. Clinically, her current episode is not clear cut a seizure and she continues to have runs of epileptogenic activity despite being back to baseline. At this point I would recommend staying at the current dose of Keppra. Recommendations: 1. Recommend c/w current dose of Keppra [address] until repeating EEG as outpt with current neurologist. 3. Otherwise could be discharged. I will also compare her current EEGs to the old EEGs in our office. Consult Acknowledgment - Thank you for your consult request.
[2017-04-09 00:07] VITALS: BP 110/66
--- NOTE | 2017-04-09 05:45 | PN- Housestaff ---
Subjective Follow-up For: Weakness Tele-Events Since Last Visit: NSR Subjective: Patient seen and examined at bedside. Resting comfortably in bed with no complaints. Alert, awake and oriented x 3. Feeling well at baseline. Denies any dyspnea, chest pain, palpitations, lightheadedness, dizziness, abdominal pain, n /v/c/d. Review of Systems Constitutional: Reports: see HPI. Objective Last 24 Hrs of Vital Signs/I&O Vital Signs Date Time Temp Pulse Resp B/P B/P Pulse O2 O2 Flow FiO2 Mean Ox Delivery Rate 04/09 0800 98.0 79 20 118/60 95 Room Air 04/09 0007 98.1 90 20 110/66 95 Room Air 04/09 0000 97 Room Air 04/08 1640 98.5 87 18 104/70 95 Room Air Intake & Output 04/09 1600 04/09 0800 04/09 0000 Intake Total 480 300 Output Total Balance 480 300 Intake, Oral 480 300 Physical Exam General Appearance: Alert, Oriented X3, Cooperative, No Acute Distress Other Physical Findings: Skin No Rashes, No Breakdown HEENT Atraumatic, PERRLA, EOMI Neck Supple, No JVD Cardiovascular Regular Rate, Normal S1, Normal S2 Lungs Clear to Auscultation, Normal Air Movement Abdomen Normal Bowel Sounds, Soft, No Tenderness Neurological Normal Speech, Strength at 5/5 X4 Ext, Normal Tone, Sensation Intact, Cranial Nerves 3-12 NL Extremities No Clubbing, No Cyanosis, No Edema, Normal Pulses Vascular Normal Pulses Current Medications: Current Medications Sig/Miller Start time Last Medication Dose Route Stop Time Status Admin Atorvastatin Calcium 10 MG AT BEDTIME 04/08 2200 AC PO Cyanocobalamin 1,000 MCG DAILY 04/08 1000 AC 04/09 PO 0917 Ibuprofen 600 MG Q6PRN PRN 04/08 0815 04/09 PO 0918 Levetiracetam 750 MG BID 04/08 0100 04/09 PO 0917 Patient Medication 1 ED .ST-MED ONE 04/[address] Teaching ED 04/08 1344 Assessment/Plan Assessment: 62-year-old female with past medical history of absence seizures since childhood , initially on Depakote, in remission, recurrence of the seizure now tonic- clonic since 2011 on Keppra, hyperlipidemia, COPD, emphysema, cholelithiasis came in with chief complain of difficulty with altered mental status possibly 2/ 2 recurrent seizure activity. # Altered mental status Rule out seizure vs. TIA. CT head negative. EEG shows ongoing intermittent short -lived runs of bifrontal spike and wave activity and occasional epileptogenic sharps more prominent within the right frontal region that are consistent with the patient's history of PGE. Patient is okay for discharge per neuro rec. * Continue tele monitoring for arrythymias * Vitals per protocol * Continue neuro checks and NIH stroke scale. * Neuro recs appreciated - discharge, follow up outpatient for repeat EEG * Continue Keppra IV 670mg BID # HLD Patient was prescribed statin however she was not taking it due to insurance issues. * Continue Lipitor 10mg PO qHS * Consider changing to high-dose statin. - NPO - Mild pain pathway - DVTppx with Lovenox and ALPS - Full code. Problem List: 1. Confusion state Pain Ratin Pain Location: 0 Pain Goal: Remain pain free Pain Plan: Mild pathway Tomorrow's Labs & Rationales: None
--- NOTE | 2017-04-09 07:20 | Patient Discharge Instructions ---
Discharge Instructions General Discharge Information You were seen/treated for: Weakness Special Instructions: Please follow up with your neurologist Dr. Altamirano and primary care provider within 1-2 weeks of discharge. Please do not drive until repeat EEG as outpatient with Dr. Altamirano. Diet Continue normal diet: Yes Activity Full Activity/No Limits: Yes Additional ACTIVITY Info: Please do not drive until repeat EEG with Dr. Altamirano. Acute Coronary Syndrome Inclusion Criteria At DC or during hospital stay patient has or had the following: ACS DIAGNOSIS No Discharge Core Measures Meds if any: Prescribed or Continued at Discharge Meds if any: NOT Prescribed or Continued at Discharge Congestive Heart Failure Inclusion Criteria At DC or during hospital stay patient has or had the following: CHF DIAGNOSIS No Discharge Core Measures Meds if any: Prescribed or Continued at Discharge Meds if any: NOT Prescribed or Continued at Discharge Cerebrovascular accident Inclusion Criteria At DC or during hospital stay patient has or had the following: CVA/TIA Diagnosis No Discharge Core Measures Meds if any: Prescribed or Continued at Discharge Meds if any: NOT Prescribed or Continued at Discharge Venous thromboembolism Inclusion Criteria VTE Diagnosis No VTE Type NONE VTE Confirmed by (Test) NONE Discharge Core Measures - Per Current guidelines, there needs to be overlap - treatment for the first 5 days of Warfarin therapy. - If discharged on Warfarin prior to 5 days of - overlap therapy, the patient will need to be - assessed for post discharge needs including - *Post discharge parental anticoagulation - *Warfarin and/or parental anticoagulation education - *Follow up date to check INR post discharge At least 5 days overlap therapy as Inpatient No Meds if any: Prescribed or Continued at Discharge Note: Overlap Therapy is Warfarin and Anticoagulant Meds if any: NOT Prescribed or Continued at Discharge
[2017-04-09 08:00] VITALS: BP 118/60
[2017-04-09] MEDS ORDERED: IBUPROFEN600 M1 PO (09:12)
--- NOTE | 2017-04-09 09:44 | PN- Att Addend ---
Attending Addendum Attending Brief Note Patient has no symptoms this morning and she is neurologically intact. No recurrent symptoms. General Appearance: Alert, No Acute Distress Skin: Grossly normal HEENT: PEERLA Neck: Supple, No JVD Cardiovascular: Regular Rate, Normal S1, Normal S2, No Murmurs Lungs: Clear to Auscultation, Normal Air Movement Abdomen: Normal Bowel Sounds, Soft, No Tenderness Neurological: Normal Speech, Strength at 5/5 X4 Ext, Cranial Nerves 3-12 NL, Reflexes 2+ Extremities: No Clubbing, No Cyanosis, No Edema Vascular: Normal Pulses Assessment 62-year-old female with history of seizure disorder on Keppra, hyperlipidemia, COPD, emphysema presenting with episodes of light lightheadedness and inability to concentrate that lasted for about 4 hours. Patient had not eaten that morning and she has history of hypoglycemia secondary to skipping meals in the past. She has no neurological deficits and her CAT scan head are negative. Patient has been evaluated by neurology and is cleared for discharge. She will get an outpatient EEG and continue Keppra at the same dose. Plan Continue current medications Outpatient EEG Discharge on home medications Discontinue all antibiotics Current Medications Sig/Miller Start time Last Medication Dose Route Stop Time Status Admin Atorvastatin Calcium 10 MG AT BEDTIME 04/08 2200 AC PO Cyanocobalamin 1,000 MCG DAILY 04/08 1000 AC 04/09 PO 0917 Ibuprofen 600 MG Q6PRN PRN 04/08 0815 AC 04/09 PO 0918 Levetiracetam 750 MG BID 04/08 0100 AC 04/09 PO 0917 Patient Medication 1 ED .STK-MED ONE 04/08 1343 [place] Teaching ED 04/08 1344 Vital Signs Date Time Temp Pulse Resp B/P B/P Pulse O2 O2 Flow FiO2 Mean Ox Delivery Rate 04/09 0800 98.0 79 20 118/60 95 Room Air 04/09 0007 98.1 90 20 110/66 95 Room Air 04/09 0000 97 Room Air 04/08 1640 98.5 87 18 104/70 95 Room Air
== END 2017-04-09 12:00 ==
LOC: ERH 16:45 → 1NO 21:18 → ERHI 21:18 → ENRESERV 21:53 → 1NO 04-08 00:11 → ENPENDDIS 04-09 09:12 → 1NO 04-09 12:00
PROVIDERS: Pediatrics; ADMIT Internal Medicine
DX: R94.01 Abnormal electroencephalogram [EEG] (principal); R42 Dizziness and giddiness; E78.5 Hyperlipidemia, unspecified; J43.9 Emphysema, unspecified; R41.0 Disorientation, unspecified
CPT/HCPCS: 1263; 80307; 81003; 93005; 93010; 95816; G0378; J1953